=== PATIENT | male | born 1975 | race Caucasian/White ===

== ENCOUNTER 2016-07-02 09:18 | Inpatient (IN) | payer BC ==
[2016-06-19 12:07] VITALS: BMI 28.0
--- NOTE | 2016-06-19 12:25 | PAT Medication Instructions ---
Service Date Jun 19, 2016. Current Home Medication List Amphetamine-Dextroamphetamine 10MG (Adderall 10MG), 10 MG PO BID Amphetamine-Dextroamphetamine 30MG (Adderall 30MG), 30 MG PO BID Medication Instructions For Your Scheduled Surgery - Hold the following medications the morning of surgery: Amphetamine-Dextroamphetamine 30MG (Adderall 30MG), - Take the following medications as scheduled the night before surgery: Amphetamine-Dextroamphetamine 30MG (Adderall 30MG), If you have any questions please call us at [phone] or [phone] ( [place]) or [phone]
[2016-06-19 12:53] LABS: BASO % 0.2 %; BASO ABS # 0.01 K/uL (0-0.2); COMPLETE YES; EOS % 0.8 %; HEMATOCRIT 46.9 % (42-52); IG% 0.2 %; LYMPH % 21.9 %; LYMPH ABS # 1.05 K/uL (1.2-3.4); MEAN CELL VOLUME 84.1 fL (80-100); MEAN CORPUSCULAR HEMOGLOBIN 31.2 pg (25-34); MEAN CORPUSCULAR HGB CONC 37.1 g/dl (32-36); MEAN PLATELET VOLUME 10.9 fL (7.4-10.4); MONO % 9.2 %; NEUT % 67.7 %; PLATELET COUNT 162 K/uL (130-400); RED BLOOD COUNT 5.58 M/uL (4.7-6.1)
[2016-06-19 13:09] LABS: BUN/CREATININE RATIO 17.7 (10-20); CREATININE 1.2 mg/dl (0.60-1.40); POTASSIUM 4.2 mmol/L (3.5-5.1)
--- NOTE | 2016-07-01 09:33 | HISTORY & PHYSICAL EXAMINATION ---
DATE OF ADMISSION: 07/02/2016 HISTORY OF PRESENT ILLNESS: He is being preoped for a posterior lumbar interbody fusion L5-S1 [facility] 07/02/2016. He has had ongoing back pain for months, even years in duration, has become incapacitating. He has failed conservative nonoperative measures. He has a significantly degenerative disc at L5-S1 and is interested in some remedy. We have offered him a posterior lumbar interbody fusion as an elective procedure. PAST MEDICAL HISTORY: Positive for spine difficulty, low back difficulty. No kidney, liver disease, carcinoma, diabetes mellitus, hypertension. No cardiac issues, asthma, wheezing or diabetes as stated. PAST SURGICAL HISTORY: Negative. ALLERGIES: Negative. MEDICATIONS: Adderall. REVIEW OF SYSTEMS: He denies any blurred vision, double vision, tinnitus, equilibrium issues. Denies chest pain, angina. Denies asthma, wheezing and shortness of breath. No nausea, vomiting, urgency, frequency, dysuria. All negative. He has back pain, which is musculoskeletal and lower extremity difficulties. OBJECTIVE: GENERAL: He is 6 feet 4, 215 pounds. He is in distress. He cannot get comfortable. He has improvement with lying supine, worsening with walking, standing. VITAL SIGNS: Blood pressure 130/80, pulse of 80, respiratory rate 16. HEAD, EYES, EARS, NOSE, AND THROAT: Pupils react to light and accommodation. Ear, nose and throat clear. SKIN INTEGUMENT: Normal. HEART, LUNG: Normal, normal S1, S2, no S3. LUNGS: Clear. ABDOMEN: Soft, nontender, bowel sounds present. MUSCULOSKELETAL: He has decreased range of motion, flexion, extension. Pain with percussion lumbar spine. NEUROLOGIC: Intact with 5/5 strength. Images demonstrated severely degenerative segment L5-S1 lumbar spine. IMPRESSION: Degenerative segment lumbar spine. DISPOSITION: We are going ahead with PLIF procedure tomorrow the which is posterior lumbar interbody fusion at L5-S1. [facility]
[2016-07-02] VITALS (9 sets, daily range): BP systolic 112–138; BP diastolic 68–95; PULSE 62–83; TEMP 36.4–36.9; O2SAT 91–98; Ht 193 cm; Wt 104.5 kg
[~2016-07-02] VITALS: Ht 193 cm; Wt 104.5 kg
[~2016-07-02 09:18] MED LIST: AMPH10TA2 PO; AMPH30TA2 PO; CEFAZOLIN IV 2,000 MG/60 ML D5W IV ONE; DEXAMETHASONE SOD INJ 4 MG/ML VIAL ONE; FENTANYL CITRATE INJ 50 MCG/1 ML 2 ML VIAL ONE; GLYCOPYRROLATE INJ 0.2 MG/ML VIAL ONE; LIDOCAINE HCL 2% 2 ML VIAL (20MG/ML) ONE; MIDAZOLAM HCL 1 MG/ML 2ML VIAL ONE; NEOSTIGMINE METHYLSULFATE 5 MG/5 ML SYR ONE; ONDANSETRON INJ 2 MG/ML 2 ML VIAL ONE; PROPOFOL IV EMULSION 10 MG/ML 20 ML VIAL IV ONE; ROCURONIUM BROMIDE 10 MG/ML 5 ML VIAL ONE
[2016-07-02] MEDS ORDERED: GELATIN SPONGE SZ 100 ONE (09:21)
[2016-07-02] MEDS ORDERED: BUPIVACAINE/EPINEPHRINE 0.5% MPF 1:200,000 30 ML VIAL ONE (09:22)
[2016-07-02] MEDS ORDERED: THROMBIN FOR SOLN 20000 UNIT KIT ONE (09:22)
[2016-07-02] MEDS ORDERED: BACITRACIN 50000 UNIT VIAL ONE (09:22)
[2016-07-02] MEDS ORDERED: VANCOMYCIN HCL 1000MG/20ML VIAL ONE (09:22)
--- NOTE | 2016-07-02 09:48 | History & Physical Bridge Note ---
H&P Re-Evaluation Bridge Note: I have examined the patient, reviewed the History & Physical and in the interval since the performance of the History & Physical I have noted the following changes of clinical significance: No changes noted
[2016-07-02] MEDS ORDERED: LACTATED RINGER'S 1000ML 1,000 ML IV PRN (09:56)
[2016-07-02] MEDS ORDERED: HYDROmorphone INJ 1 MG/ML SYR IV PRN (10:00)
[2016-07-02] MEDS ORDERED: ONDANSETRON INJ 2 MG/ML 2 ML VIAL IV PRN ×2 (10:00→12:30)
[2016-07-02] MEDS ORDERED: FENTANYL CITRATE INJ 50 MCG/1 ML 2 ML VIAL ONE (10:34)
[2016-07-02] MEDS ORDERED: ROCURONIUM BROMIDE 10 MG/ML 5 ML VIAL ONE (10:38)
--- NOTE | 2016-07-02 12:12 | DIAGNOSTIC IMAGING REPORT ---
LUMBAR SPINE, INTRAOPERATIVE FLUOROSCOPY HISTORY: L5-S1 decompression and fusion. FLUOROSCOPY TIME: 14 seconds. FINDINGS: Intraoperative fluoroscopy was provided for the lumbar spine. A single fluoroscopic spot images were obtained. Posterior decompression fusion at L5-S1 with pedicle screws and rods. IMPRESSION: Fluoroscopy provided for a L5-S1 posterior decompression and fusion. Electronically signed by: Josesito White M.D. 07/02/2016 12:10 PM Dictated Date/Time: 07/02/2016 12:10 PM
[2016-07-02] MEDS ORDERED: PROPOFOL IV EMULSION 10 MG/ML 20 ML VIAL IV ONE (12:17)
[2016-07-02] MEDS ORDERED: SODIUM CHLORIDE 0.9% 1000ML 1,000 ML IV SCH (12:28)
--- NOTE | 2016-07-02 12:29 | [facility] Post Operative Brief Note ---
Immediate Operative Summary Operative Date Jul 02, 2016. Pre-Operative Diagnosis Degenerative Segment Lumber Spine L5-S1. Post-Operative Diagnosis Same as preoperative. Procedure(s) Performed L5-S1 Posterior Lumbar Decompression Fusion, Interbody Fusion L5-S1 Surgeon [place] Inspector Surgeon(s) Loki Larsen PA-C Estimated Blood Loss 400ML Findings instability L5-s1 Specimens None per surgeon Complication(s) None Disposition Recovery Room / PACU
[2016-07-02] MEDS ORDERED: PROMETHAZINE HCL INJ 12.5 MG in SODIUM CHLORIDE 0.9% 50ML 50 ML IV PRN (12:30)
[2016-07-02] MEDS ORDERED: NALOXONE HCL 0.4 MG/1 ML VIAL/CARP IV PRN (12:30)
[2016-07-02] MEDS ORDERED: ACETAMINOPHEN 325 MG TAB PO PRN (12:30)
[2016-07-02] MEDS ORDERED: LORAZEPAM INJ 1 MG in SYRINGE 0.5 ML IV PRN (12:30)
[2016-07-02] MEDS ORDERED: MAGNESIUM HYDROXIDE SUSP 30 ML UDC PO PRN (12:30)
[2016-07-02] MEDS ORDERED: LORAZEPAM 1 MG TAB PO PRN (12:30)
[2016-07-02] MEDS ORDERED: METOCLOPRAMIDE HCL INJ 5 MG/ML 2 ML VIAL IV PRN (12:30)
[2016-07-02] MEDS ORDERED: HYDROmorphone HCL 0.5MG/ML 50 ML CASSETTE ONE (12:34)
[2016-07-02] MEDS: FENTANYL CITRATE INJ 50 MCG/1 ML 2 ML VIAL IV PRN ×2 (12:38→12:45)
--- NOTE | 2016-07-02 12:58 | Anesthesiology Progress Note ---
Anesthesia Post Op Note Date & Time Jul 02, 2016 at 12:58 Vital Signs Pain Intensity: 5 Vital Signs Past 12 Hours Date Time Temp Pulse Resp B/P Pulse Ox O2 Delivery O2 Flow Rate FiO2 07/02/16 12:50 67 12 133/82 95 Nasal Cannula 4 07/02/16 12:40 87 26 124/83 94 Nasal Cannula 4 07/02/16 12:33 36.0 90 18 143/96 98 Mask 10 07/02/16 09:28 36.4 62 16 134/91 96 Room Air Notes Mental Status: alert / awake / arousable, participated in evaluation Pt Amnestic to Procedure: Yes Nausea / Vomiting: adequately controlled Pain: adequately controlled Airway Patency, RR, SpO2: stable & adequate BP & HR: stable & adequate Hydration State: stable & adequate Anesthetic Complications: no major complications apparent Pt resting comfortably.
[2016-07-02] MEDS: HYDROmorphone HCL 0.5MG/ML 50 ML CASSETTE IV PRN ×3 (13:31→23:00)
[2016-07-02] MEDS: SODIUM CHLORIDE 0.9% 1000ML 1,000 ML IV SCH ×2 (13:40→23:23)
[2016-07-02] MEDS ORDERED: AMPHETAMINE ASP/SULF/DEXTRAMPH 20 MG TAB PO SCH (14:30)
--- NOTE | 2016-07-02 15:17 | OPERATIVE REPORT ---
DATE OF OPERATION: 07/02/2016 PREOPERATIVE DIAGNOSES: Instability L5-S1 and degenerative disk, L5-S1. POSTOPERATIVE DIAGNOSES: Same. PROCEDURE: Posterior lumbar interbody fusion, L5-S1. SURGEON: Bryan Gifford DO. LEAD MILITARY ANALYST: Loki Larsen PA-C. COMPLICATIONS: Zero. BLOOD LOSS: 350 mL. ANESTHETIC: General. DESCRIPTION OF PROCEDURE: The patient was taken to the operating room, a general intubated anesthetic provided to the patient, placed prone, prepped and draped sterile. We made a skin incision from 4 to the sacrum dissecting the soft tissue in the same plane and muscle taken out over the transverse process and the sacrum, putting a deep self-retaining retractor. We started with the decompression of the neural elements, laminectomy L5, foraminotomy, and partial facetectomy. We then retracted the dura and on the left hand side, there was too much vasculature. We abandoned this. We went to the left hand side. We were able to pull the dura over associated nerve root over and protect all neurovascular structures. We then reamed out the disk interspace at L5-S1. We really got enough disk material completely vacated. We then safely placed pedicle screws in the sacrum and the 5th vertebrae. X-rays demonstrated excellent positioning. Then, we completed the posterior lumbar interbody fusion with ample amount of autogenous bone, which means the patient's own bone with a PEEK cage packed with DBM. We locked down the construct. We irrigated thoroughly, closed in layers over vancomycin powder and a Hemovac drain. Sterile dressings applied. The patient returned to PACU stable. No apparent complications. I attest to the content of the Intraoperative Record and any orders documented therein. Any exceptions are noted below. MTDD
[2016-07-02] MEDS ORDERED: DEXAMETHASONE INJ 10 MG in SYRINGE 0 ML IV SCH (16:00)
[2016-07-02] MEDS ORDERED: NURSING VERBAL MED ORDER ONE (17:00)
[2016-07-02] MEDS: KETOROLAC TROMETHAMINE 30 MG/ML VIAL IV SCH ×2 (17:44→23:23)
[2016-07-02] MEDS: CEFAZOLIN IV 2,000 MG in DEXTROSE 5% 50ML 50 ML IV SCH (17:44)
[2016-07-02] MEDS ORDERED: AMPHETAMINE DEXTROAMPHETAMINE 30 MG PO SCH (21:00)
[2016-07-03] MEDS: CEFAZOLIN IV 2,000 MG in DEXTROSE 5% 50ML 50 ML IV SCH ×2 (02:50→09:53)
[2016-07-03 03:02] VITALS: BP 110/66; PULSE 82; TEMP 36.8; O2SAT 96
[2016-07-03] MEDS: KETOROLAC TROMETHAMINE 30 MG/ML VIAL IV SCH ×3 (05:27→18:08)
[2016-07-03] MEDS: AMPHETAMINE ASP/SULF/DEXTRAMPH 20 MG TAB PO SCH ×2 (05:29→11:52)
[2016-07-03] MEDS ORDERED: COUGH DROP (SUGAR FREE) LOZ 24 LOZ/1 BOX ONE (05:37)
[2016-07-03] MEDS ORDERED: DC PCA SCH ×2 (06:00→08:00)
[2016-07-03] MEDS ORDERED: BISACODYL 10 MG SUPP PR PRN (06:00)
[2016-07-03] MEDS ORDERED: BISACODYL 5 MG TABEC PO PRN (06:00)
[2016-07-03] MEDS ORDERED: COUGH DROP (SUGAR FREE) LOZ 24 LOZ/1 BOX PO PRN (06:00)
[2016-07-03] MEDS: HYDROmorphone HCL 0.5MG/ML 50 ML CASSETTE IV PRN (07:05)
--- NOTE | 2016-07-03 07:50 | Anesthesiology Progress Note ---
Anesthesia Post Op Note Date & Time Jul 03, 2016 at 07:50 Vital Signs Pain Intensity: 2.0 Vital Signs Past 12 Hours Date Time Temp Pulse Resp B/P Pulse Ox O2 Delivery O2 Flow Rate FiO2 07/03/16 03:02 36.8 82 14 110/66 96 Room Air 07/02/16 23:10 36.8 75 16 112/70 96 Room Air 07/02/16 23:10 Room Air Notes Mental Status: alert / awake / arousable, participated in evaluation Pt Amnestic to Procedure: Yes Nausea / Vomiting: adequately controlled Pain: adequately controlled Airway Patency, RR, SpO2: stable & adequate BP & HR: stable & adequate Hydration State: stable & adequate Anesthetic Complications: no major complications apparent
[2016-07-03] MEDS ORDERED: OXYCODONE/ACETAMINOPHEN 5-325 TAB PO PRN (08:00)
[2016-07-03] MEDS ORDERED: HYDROmorphone INJ 2 MG/ML SYR/VIAL IV PRN (08:00)
[2016-07-03 08:02] VITALS: BP 112/76; PULSE 58; TEMP 36.8; O2SAT 95
[2016-07-03 08:50] VITALS: O2SAT 95
[2016-07-03] MEDS: POLYETHYLENE (MIRALAX) 17 GM PACK PO SCH (09:00)
[2016-07-03] MEDS ORDERED: NURSING VERBAL MED ORDER ONE (09:00)
[2016-07-03] MEDS: OXYCODONE/ACETAMINOPHEN 5-325 TAB PO PRN ×3 (09:08→22:46)
[2016-07-03 11:30] VITALS: BP 118/74; PULSE 64; TEMP 36.8; O2SAT 95
--- NOTE | 2016-07-03 14:39 | PROGRESS NOTE ---
DATE: 07/03/2016 DATE: 07/03/2016. SUBJECTIVE: He is alert and stable, moderate complaints. Denies neurological deficit. No chest pain, shortness of breath. OBJECTIVE: Hemoglobin 17.4. Vital signs stable. Moves all extremities. Good bowel sounds. ASSESSMENT: Status post PLIF procedure lumbar spine, doing well short run. DISPOSITION: Will get him up and ambulatory today. Hopefully, discharge home tomorrow.
--- NOTE | 2016-07-03 14:42 | Discharge Instructions ---
Discharge Instructions Date of Service Jul 03, 2016. Admission Reason for Admission: L5-S1 Lumbar Disc Degeneration Discharge Discharge Diagnosis / Problem: SPINAL FUSION Discharge Goals Goal(s): Improve function Activity Recommendations Activity Limitations: as noted below Lifting Limitations: until after follow-up appointment Exercise/Sports Limitations: until after follow-up appointment May Resume Sexual Activity: after follow-up appointment Shower/Bathe: keep incision dry Driving or Machine Use: HOME, REST RECOVER . Instructions / Follow-Up Instructions / Follow-Up MEDICATIONS: Please take your prescriptions as instructed at your pre-op appointment. SPECIAL CARE: The following information is intended to answer some of the common questions and concerns regarding your surgery. Each patient is an individual and receives individual counselling throughout the course of treatment, from diagnosis to surgery all the way through recovery. What follows is not an exhaustive list, but should be a useful guide to some of the common questions and concerns patients have regarding their surgeries. These are not provided to keep you from calling us; rather, they give you something accurate and concrete to reference as you recover from your procedure. If you need us, we are available to you. As always, if you are not sure about something, call us at [phone]. MEDICAL EMERGENCIES: For these conditions, call 911 or go to your local hospital-based Emergency Department - not [facility] or equivalent. * Paralysis * Severe chest pain or difficulty breathing * Swelling or redness of either leg Spine procedures can be rather complex and though complications are rare, they do occur. In such cases, effective advice regarding emergency situations cannot always be addressed over the telephone. You may be referred to the emergency department for more effective management of your problem. Activity Limitations: It is important to give your body time to heal, so please limit your activities : * In general, don't do anything that moves your spine too much. You should avoid contact sports, twisting or heavy lifting while you recover. * 5-10 pounds is all you should attempt to lift. * You should not plan on driving for approximately 3 weeks and you should avoid traveling more than 30-45 minutes at a time. Longer trips should be broken down with walking breaks spaced appropriately. * Physical therapy is not usually required. * Walking and good posture practices will help you recover and regain your function. * Avoid straining or sudden changes in position. * In general, the goal is to take it easy and recover. Don't cause any new problems. Just relax. Showers: * Do not take a bath, use a Jacuzzi or hot tub or otherwise submerge your incision. * It is usually safe to take a shower 4-5 days after your surgery. * Your incision does not require any special creams or ointments. * Simply clean it with soap and water, dry and re-dress with a clean bandage afterwards. Incision: * Keep incision clean, dry and protected until your first follow-up appointment. * Some amount of drainage and redness is normal. Any drainage should be fairly clear and not have a foul odor. * If you feel anything is wrong or you have excessive drainage, please call us. * Your stitches and dudley will be removed 10-14 days after your surgery. At the time of your first post-op visit. * Neck surgeries are typically closed with a suture underneath the skin. The steri-strips over the incision should be maintained until we see you in the office. Bracing: * You may be provided with a back or neck brace to encourage good posture and prevent injury. It will remind you not to do too much as you heal and will alert others to the fact that you have had a surgery. * Back braces may be removed for showers and when you are resting at home. They must be worn when you are walking around for any period of time or for travel. * For neck surgery, you will likely be provided with two cervical collars. The soft collar ([place] or foam rubber) is worn most commonly throughout the day and while sleeping. The plastic collar (provided at the hospital) is for showering/bathing. * Except while eating, collars should remain in place. More specifically, bracing is provided for a purpose and should be worn. * Please obtain your brace or collars prior to your operation and bring them to the hospital with you on the day of surgery. * You should also bring your collars to your post-op appointment with Dr. Gifford. You should always take good care of your body and practice healthy habits, especially following surgery. You should: * Follow your doctor's treatment plan * Sit and stand properly with good posture (ears over shoulders, shoulders over hips) Don't slouch * Learn to lift correctly * Exercise regularly (low-impact aerobic exercise is especially good, but check with your doctor first) * Generally, be up and walking for 5-10 minutes at a time at least 3-4 times per day from the day you get home * Increasing walking to tolerance until you can walk for 20-30 minutes at a time * Attain and maintain a healthy body weight * Eat healthy foods ( a well-balanced, low-fat diet rich in fruits and vegetables) and get enough calcium * Avoid excessive use of alcohol When to call our office - If you notice any of the following: * Increased pain not relieve by pain medicine * Fevers greater then 100 degrees F, chills or flu symptoms * Increased redness around incision * Drainage from the incision that is not clear * Any foul smelling drainage * Swelling or fluid collection beneath the skin Miscellaneous: * In the hospital, you may be given a walker or cane for support while walking. These are temporary needs and are intended to prevent injuries due to falls. You may discontinue them when you feel strong and steady enough on your feet. * Sleep in a comfortable position. We find that many patients find a lounge chair or recliner with several pillows to be beneficial in the early post-operative period. * The support stockings should be used for 7-10 days and may be discontinued when you are back to walking more and conducting usual household activities. No problem is insignificant. We are here to help you and get you well. Contact us at [phone]. Definitions: Foraminotomy: If part of the disc or a bone spur (osteophyte) is pressing on a nerve as it leaves the vertebra (through an exit called the foramen), a foraminotomy may be done. Otomy means "to make an opening." A foraminotomy is making the opening of the foramen larger, so the nerve can exit without being compressed. Laminotomy: Similar to the foraminotomy, a laminotomy makes a larger opening, this time in your bony plate protecting your spinal canal and spinal cord (the lamina). The lamina may be pressing on your nerve, so the surgeon may make more room for the nerves using a laminotomy. Laminectomy: Sometimes, a laminotomy is not sufficient. The surgeon may need to remove all or part of the lamina. This procedure is called a laminectomy. This can often be done at many levels without any harmful effects. Current Hospital Diet Patient's current hospital diet: Regular Diet Discharge Diet Recommended Diet: Regular Diet Procedures Procedures Performed: L5-S1 Posterior Lumbar Decompression Fusion, Interbody Fusion L5-S1 Pending Studies Studies pending at discharge: no Medical Emergencies . Who to Call and When: Medical Emergencies: If at any time you feel your situation is an emergency, please call 911 immediately. . Non-Emergent Contact Non-Emergency issues call your: Surgeon Call Non-Emergent contact if: you have any medication questions . "Provider Documentation" section prepared by Bryan Gifford. VTE Core Measure Inpt VTE Proph given/why not?: Treatment not indicated
[2016-07-03 14:53] VITALS: BP 115/67; PULSE 71; TEMP 36.7; O2SAT 95
[2016-07-03 23:39] VITALS: BP 121/79; PULSE 73; TEMP 36.9; O2SAT 99
[2016-07-03] MEDS: HYDROmorphone INJ 1 MG/ML SYR IV PRN (23:47)
[2016-07-04] MEDS: OXYCODONE/ACETAMINOPHEN 5-325 TAB PO PRN ×3 (03:48→13:15)
[2016-07-04 05:45] VITALS: BP 112/70; PULSE 60; O2SAT 93
[2016-07-04] MEDS: AMPHETAMINE ASP/SULF/DEXTRAMPH 20 MG TAB PO SCH ×2 (05:54→11:14)
[2016-07-04 07:09] VITALS: BP 112/67; PULSE 73; TEMP 37.1; O2SAT 93
[2016-07-04] MEDS: HYDROmorphone INJ 1 MG/ML SYR IV PRN (07:35)
[2016-07-04] MEDS: POLYETHYLENE (MIRALAX) 17 GM PACK PO SCH (08:05)
[2016-07-04 08:24] VITALS: BP 112/67; PULSE 73; TEMP 37.1; O2SAT 93
[2016-07-04] MEDS ORDERED: OXYC-106 PO (08:36)
--- NOTE | 2016-07-04 08:38 | Discharge Instructions ---
Discharge Instructions Date of Service Jul 04, 2016. Admission Reason for Admission: L5-S1 Lumbar Disc Degeneration Discharge Discharge Diagnosis / Problem: spinal fusion Discharge Goals Goal(s): Improve function Activity Recommendations Activity Limitations: as noted below Lifting Limitations: until after follow-up appointment Exercise/Sports Limitations: until after follow-up appointment May Resume Sexual Activity: after follow-up appointment Shower/Bathe: may shower/bathe in 3 days home, rest ,recover. very short walks . Instructions / Follow-Up Instructions / Follow-Up MEDICATIONS: Please take your prescriptions as instructed at your pre-op appointment. SPECIAL CARE: The following information is intended to answer some of the common questions and concerns regarding your surgery. Each patient is an individual and receives individual counselling throughout the course of treatment, from diagnosis to surgery all the way through recovery. What follows is not an exhaustive list, but should be a useful guide to some of the common questions and concerns patients have regarding their surgeries. These are not provided to keep you from calling us; rather, they give you something accurate and concrete to reference as you recover from your procedure. If you need us, we are available to you. As always, if you are not sure about something, call us at [phone]. MEDICAL EMERGENCIES: For these conditions, call 911 or go to your local hospital-based Emergency Department - not [facility] or equivalent. * Paralysis * Severe chest pain or difficulty breathing * Swelling or redness of either leg Spine procedures can be rather complex and though complications are rare, they do occur. In such cases, effective advice regarding emergency situations cannot always be addressed over the telephone. You may be referred to the emergency department for more effective management of your problem. Activity Limitations: It is important to give your body time to heal, so please limit your activities : * In general, don't do anything that moves your spine too much. You should avoid contact sports, twisting or heavy lifting while you recover. * 5-10 pounds is all you should attempt to lift. * You should not plan on driving for approximately 3 weeks and you should avoid traveling more than 30-45 minutes at a time. Longer trips should be broken down with walking breaks spaced appropriately. * Physical therapy is not usually required. * Walking and good posture practices will help you recover and regain your function. * Avoid straining or sudden changes in position. * In general, the goal is to take it easy and recover. Don't cause any new problems. Just relax. Showers: * Do not take a bath, use a Jacuzzi or hot tub or otherwise submerge your incision. * It is usually safe to take a shower 4-5 days after your surgery. * Your incision does not require any special creams or ointments. * Simply clean it with soap and water, dry and re-dress with a clean bandage afterwards. Incision: * Keep incision clean, dry and protected until your first follow-up appointment. * Some amount of drainage and redness is normal. Any drainage should be fairly clear and not have a foul odor. * If you feel anything is wrong or you have excessive drainage, please call us. * Your stitches and dudley will be removed 10-14 days after your surgery. At the time of your first post-op visit. * Neck surgeries are typically closed with a suture underneath the skin. The steri-strips over the incision should be maintained until we see you in the office. Bracing: * You may be provided with a back or neck brace to encourage good posture and prevent injury. It will remind you not to do too much as you heal and will alert others to the fact that you have had a surgery. * Back braces may be removed for showers and when you are resting at home. They must be worn when you are walking around for any period of time or for travel. * For neck surgery, you will likely be provided with two cervical collars. The soft collar ([place] or foam rubber) is worn most commonly throughout the day and while sleeping. The plastic collar (provided at the hospital) is for showering/bathing. * Except while eating, collars should remain in place. More specifically, bracing is provided for a purpose and should be worn. * Please obtain your brace or collars prior to your operation and bring them to the hospital with you on the day of surgery. * You should also bring your collars to your post-op appointment with Dr. Gifford. You should always take good care of your body and practice healthy habits, especially following surgery. You should: * Follow your doctor's treatment plan * Sit and stand properly with good posture (ears over shoulders, shoulders over hips) Don't slouch * Learn to lift correctly * Exercise regularly (low-impact aerobic exercise is especially good, but check with your doctor first) * Generally, be up and walking for 5-10 minutes at a time at least 3-4 times per day from the day you get home * Increasing walking to tolerance until you can walk for 20-30 minutes at a time * Attain and maintain a healthy body weight * Eat healthy foods ( a well-balanced, low-fat diet rich in fruits and vegetables) and get enough calcium * Avoid excessive use of alcohol When to call our office - If you notice any of the following: * Increased pain not relieve by pain medicine * Fevers greater then 100 degrees F, chills or flu symptoms * Increased redness around incision * Drainage from the incision that is not clear * Any foul smelling drainage * Swelling or fluid collection beneath the skin Miscellaneous: * In the hospital, you may be given a walker or cane for support while walking. These are temporary needs and are intended to prevent injuries due to falls. You may discontinue them when you feel strong and steady enough on your feet. * Sleep in a comfortable position. We find that many patients find a lounge chair or recliner with several pillows to be beneficial in the early post-operative period. * The support stockings should be used for 7-10 days and may be discontinued when you are back to walking more and conducting usual household activities. No problem is insignificant. We are here to help you and get you well. Contact us at [phone]. Definitions: Foraminotomy: If part of the disc or a bone spur (osteophyte) is pressing on a nerve as it leaves the vertebra (through an exit called the foramen), a foraminotomy may be done. Otomy means "to make an opening." A foraminotomy is making the opening of the foramen larger, so the nerve can exit without being compressed. Laminotomy: Similar to the foraminotomy, a laminotomy makes a larger opening, this time in your bony plate protecting your spinal canal and spinal cord (the lamina). The lamina may be pressing on your nerve, so the surgeon may make more room for the nerves using a laminotomy. Laminectomy: Sometimes, a laminotomy is not sufficient. The surgeon may need to remove all or part of the lamina. This procedure is called a laminectomy. This can often be done at many levels without any harmful effects. Current Hospital Diet Patient's current hospital diet: Regular Diet Discharge Diet Recommended Diet: Regular Diet Fluid Restriction: None Procedures Procedures Performed: L5-S1 Posterior Lumbar Decompression Fusion, Interbody Fusion L5-S1 Pending Studies Studies pending at discharge: no Medical Emergencies . Who to Call and When: Medical Emergencies: If at any time you feel your situation is an emergency, please call 911 immediately. . Non-Emergent Contact Non-Emergency issues call your: Surgeon . "Provider Documentation" section prepared by Bryan Gifford. VTE Core Measure Inpt VTE Proph given/why not?: Treatment not indicated
--- NOTE | 2016-07-04 09:56 | DISCHARGE SUMMARY ---
SUBJECTIVE: Moderate complaints of pain but no paresthesias, numbness, tingling, shortness of breath. OBJECTIVE: Blood pressure stable, afebrile at 37.1. Lab work stable. Wound clean, dry. ASSESSMENT: Status post lumbar spine reconstruction and fusion. DISPOSITION: Includes instructions, precautions, education to his pathology. We will discharge him home later today. He has prescriptions on his chart. He has a followup appointment in 10 days. He is to be careful with bending, stooping and lifting. Very short walks, home rest and recovery.
== END 2016-07-04 13:30 | disposition home or self-care (01) | DRG 460 ==
LOC: ENRESERVDT → ENRESERVTM → C.ACU 09:18 → C.3E 12:35
PROVIDERS: ADMIT Orthopaedic Surgery Orthopaedic Surgery of the Spine; ATTEND Orthopaedic Surgery Orthopaedic Surgery of the Spine
PROC: 0SG30AJ Fusion of Lumbosacral Joint with Interbody Fusion Device, Posterior Approach, Anterior Column, Open Approach (ICD-10-PCS; principal; 2016-07-02 10:00)
PROC: 0SG30Z1 (ICD-10-PCS; principal; 2016-07-02 10:00)
PROC: 0ST40ZZ Resection of Lumbosacral Disc, Open Approach (ICD-10-PCS; principal; 2016-07-02 10:00)
DX: M51.37 Other intervertebral disc degeneration, lumbosacral region (principal); M53.2X7 Spinal instabilities, lumbosacral region; F90.9 Attention-deficit hyperactivity disorder, unspecified type; Z79.899 Other long term (current) drug therapy